=== PATIENT | male | born 1975 | race Caucasian/White ===

== ENCOUNTER 2019-11-14 14:55 | Outpatient (CLI) | payer MEDICAID, SELFPAY ==
--- NOTE | 2019-11-14 15:05 | XR_ITS ---
WS: [id number] DEXA (DUAL ENERGY X-RAY ABSORPTIOMETRY) Bone mineral density was performed using a A[employer] machine. Male patient. HISTORY: ANTICOAGULATION MANAGEMENT COMPARISON: None available. Lumbar spine BMD (L1-L4): 0.903 g/cm2 T score: -2.6 Z score: -2.2 Total hip BMD: Left: 0.834 g/cm2. T score: -1.9 Z score: -1.3 Right: 0.839 g/cm2. T score: -1.8 Z score: -1.3 10 year probability of a major osteoporotic fracture is 6%. XR/XR DEXA axial skeleton* [id number] IMPRESSION: OSTEOPOROSIS.
== END 2019-11-14 14:56 | disposition home or self-care (01) ==
LOC: RADWPI 15:03
PROVIDERS: PCP Internal Medicine; Visit Provider Nurse Practitioner Family
DX: Z51.81 Encounter for therapeutic drug level monitoring (principal); Z79.01 Long term (current) use of anticoagulants; M81.0 Age-related osteoporosis without current pathological fracture
CPT/HCPCS: 77080

== ENCOUNTER 2020-01-15 13:38 | Outpatient (RCR) | payer MEDICAID, SELFPAY ==
[2020-01-01 14:46] VITALS: BMI 22.1
[2020-01-01] MEDS: iron sucrose 200 MG in sodium chloride 0.9% (100 ml) 100 ML 220 MG IV (15:00)
[2020-01-01 16:53] VITALS: BP 124/67; PULSE 84; RESP 18; TEMP 37.1; O2SAT 97
[2020-01-08] MEDS: iron sucrose 200 MG in sodium chloride 0.9% (100 ml) 100 ML 220 MG IV (14:01)
[2020-01-08 14:02] VITALS: BP 114/66; PULSE 66; RESP 18; TEMP 36.3; O2SAT 100
--- NOTE | 2020-01-08 14:40 | SUR.PREOP ---
piid discontinued intact. 2x2 dressing applied with coban.
[2020-01-15 14:00] VITALS: BP 117/71; PULSE 73; RESP 18; TEMP 36.6; O2SAT 100
[2020-01-15] MEDS: iron sucrose 200 MG in sodium chloride 0.9% (100 ml) 100 ML 220 MG IV (14:02)
== END 2020-01-20 23:59 | disposition home or self-care (01) ==
LOC: OPS 13:38
PROVIDERS: PCP Internal Medicine; Visit Provider Internal Medicine
DX: D50.9 Iron deficiency anemia, unspecified (principal)
CPT/HCPCS: 96365; J1756

== ENCOUNTER 2020-01-22 12:14 | Outpatient (RCR) | payer MEDICAID, SELFPAY ==
[2020-01-22 12:22] VITALS: BP 120/64; PULSE 67; RESP 18; TEMP 36.5; O2SAT 100; BMI 22.1
[2020-01-22] MEDS: iron sucrose 200 MG in sodium chloride 0.9% (100 ml) 100 ML 220 MG IV (12:38)
== END 2020-02-19 23:59 | disposition home or self-care (01) ==
LOC: OPS 12:14
PROVIDERS: PCP Internal Medicine; Visit Provider Internal Medicine
DX: D50.9 Iron deficiency anemia, unspecified (principal)
CPT/HCPCS: 96365; J1756

== ENCOUNTER → 2020-01-29 11:46 | Day surgery (SDC) | payer MEDICAID, SELFPAY ==
[2020-01-29 12:07] VITALS: BP 121/71; PULSE 72; RESP 18; TEMP 36.9; O2SAT 98; BMI 18.4
[2020-01-29] MEDS: iron sucrose 200 MG in sodium chloride 0.9% (100 ml) 100 ML 220 MG IV (12:26)
== END ==
PROVIDERS: PCP Internal Medicine; Visit Provider Internal Medicine
DX: D50.9 Iron deficiency anemia, unspecified (principal)
CPT/HCPCS: J1756